=== PATIENT | female | born 1965 | race Caucasian/White ===

== ENCOUNTER → 2019-06-03 10:45 | Outpatient (BNVA) | payer BC, SELFPAY | PROVIDERS: Family Provider Family Medicine; PCP Family Medicine; Visit Provider Nurse Practitioner | DX: M54.16 Radiculopathy, lumbar region (principal); M47.817 Spondylosis without myelopathy or radiculopathy, lumbosacral region; M51.36 Other intervertebral disc degeneration, lumbar region; M48.061 Spinal stenosis, lumbar region without neurogenic claudication; M25.561 Pain in right knee; F17.210 Nicotine dependence, cigarettes, uncomplicated; Z79.891 Long term (current) use of opiate analgesic | CPT/HCPCS: 99214 ==

== ENCOUNTER → 2019-06-25 11:55 | Outpatient (BNVA) | payer BC, SELFPAY | PROVIDERS: Family Provider Family Medicine; PCP Family Medicine; Visit Provider Nurse Practitioner Family | DX: E55.9 Vitamin D deficiency, unspecified (principal); R53.83 Other fatigue; I10 Essential (primary) hypertension; E78.5 Hyperlipidemia, unspecified; R73.09 Other abnormal glucose; J44.9 Chronic obstructive pulmonary disease, unspecified; K21.9 Gastro-esophageal reflux disease without esophagitis; F17.210 Nicotine dependence, cigarettes, uncomplicated | CPT/HCPCS: 36415; 80053; 80061; 81001; 82306; 83036; 84439; 84443; 84481; 85025 ==

== ENCOUNTER → 2019-06-29 15:07 | Outpatient (BNVA) | payer BC, SELFPAY | PROVIDERS: Family Provider Family Medicine; PCP Family Medicine; Visit Provider Nurse Practitioner Family | DX: K59.09 Other constipation (principal) | CPT/HCPCS: 74018 ==

== ENCOUNTER 2019-08-13 06:14 | Day surgery (SDC) | payer BC, SELFPAY ==
[2019-08-11 08:10] VITALS: BMI 37.8
[2019-08-11 10:21] VITALS: BMI 37.8
[2019-08-13 06:32] VITALS: BP 182/111; PULSE 90; RESP 20; O2SAT 96
[2019-08-13 06:34] VITALS: TEMP 37
[2019-08-13] MEDS: sodium chloride 0.9% 1,000 ML 30 ML (06:42)
--- NOTE | 2019-08-13 06:45 | W.PM.OPSUD ---
Surgery/Procedure H&P Update DATE OF PROCEDURE: August 13, 2019 DATE H&P PERFORMED: 07/30/19 H&P UPDATE INFORMATION: I have reviewed H&P completed within last 30 days, I have examined patient prior to procedure and No changes to prior documentation PREOP DIAGNOSIS: Constipation PRIMARY INDICATION FOR PROCEDURE: The same PLANNED PROCEDURE: Operation Date: 08/13/19 07:15 Proposed Procedures p Colonoscopy 68714 K62.5(Not Applicable) - Renny Marcano MD
--- NOTE | 2019-08-13 06:50 | ANES.PREANE2 ---
Pre-Anesthetic Assessment Pre-Anesthetic Assessment: Height/Weight: Height 1.68 m Weight 99.79 kg Temp Pulse Resp BP Pulse Ox 98.6 F 90 20 H 182/111 96 08/13/19 06:34 08/13/19 06:32 08/13/19 06:32 08/13/19 06:32 08/13/19 06:32 Preop Diagnosis: Constipation Proposed Procedure: Operation Date: 08/13/19 07:15 Proposed Procedures p Colonoscopy 98242 K62.5(Not Applicable) - Renny Marcano MD Was Beta Jairo taken within 24 hours: N/A Last intake: Intake Last Liquid Date 08/13/19 Last Liquid Time 06:00 Social: Social History: Tobacco (1.5pk day) Exam: Pre-Anes Outpt Exam: alert and oriented x 3 Airway: Submandibular: WNL Cervical ROM: WNL MP: 2 Dentition: False (upper n lower) History/ROS: No significant history except as noted and No significant complaints Pulmonary: Pulmonary: COPD and Sleep apnea (cpap) CV/HEM: CV/HEM: HTN and Murmur (MVP) : : None reported Hepatic: Hepatic: None reported GI: GI: GERD Metabolic: Metabolic: None reported Musc/skel: Musc/skel: Lower Back Pain, OA/DJD and Scoliosis Comments: Hydrocodone use 5-7 yr Neuropsych: Neuropsych: PASCUAL Anesthetic Plan: ASA status: 3 Anesthesia: MAC PFSH Anesthesia PFSH: Social History Smoking and tobacco status: current every day smoker cigarettes [ Other cigarette details: 1- 1.5 PKS PER DAY BAD DAY 2-3 PKS DAY ] Second hand smoke exposure: No Alcohol intake: never Data Anesthesia Cardiac Studies: No Data to Display
[2019-08-13 07:27] VITALS: BP 131/73; PULSE 65; RESP 16; TEMP 36.5; O2SAT 99
[2019-08-13 07:42] VITALS: BP 129/82; PULSE 68; RESP 18; TEMP 36.6
--- NOTE | 2019-08-13 07:44 | ANE.PACU2 ---
 Inpatient post-anesthesia follow up: Airway intact: Yes Vital signs: Temperature 97.7 F Pulse Rate 65 Respiratory Rate 16 Blood Pressure 131/73 Pulse Oximetry 99 Oxygen Delivery Me thod Nasal Cannula Oxygen Flow Rate 3 Fraction of Inspir ed Oxygen Hydration adequate: Yes Nausea and vomiting: No Mental status: Baseline
== END 2019-08-13 07:55 | disposition home or self-care (01) ==
PROVIDERS: Family Provider Family Medicine; PCP Nurse Practitioner Family; Visit Provider Surgery
PROC: 0DJD8ZZ Inspection of Lower Intestinal Tract, Via Natural or Artificial Opening Endoscopic (ICD-10-PCS; CPT 45378; principal; 2019-08-13 07:15)
DX: K59.00 Constipation, unspecified (principal); D12.5 Benign neoplasm of sigmoid colon; F17.210 Nicotine dependence, cigarettes, uncomplicated; J44.9 Chronic obstructive pulmonary disease, unspecified; G47.30 Sleep apnea, unspecified; M19.90 Unspecified osteoarthritis, unspecified site
CPT/HCPCS: 12345; 45385; 88305; J2001; J2704; J3010; J7030

== ENCOUNTER → 2019-08-18 08:32 | Outpatient (BNVA) | payer BC, SELFPAY | PROVIDERS: Family Provider Family Medicine; PCP Nurse Practitioner Family; Visit Provider Nurse Practitioner | DX: M54.5 Low back pain (principal); F17.210 Nicotine dependence, cigarettes, uncomplicated; Z79.891 Long term (current) use of opiate analgesic | CPT/HCPCS: 99214 ==

== ENCOUNTER → 2019-12-18 09:52 | Outpatient (BNVA) | payer BC, SELFPAY | PROVIDERS: Family Provider Family Medicine; PCP Nurse Practitioner Family; Visit Provider Anesthesiology | DX: M54.42 Lumbago with sciatica, left side (principal); M54.41 Lumbago with sciatica, right side; M48.061 Spinal stenosis, lumbar region without neurogenic claudication; M54.16 Radiculopathy, lumbar region; M51.36 Other intervertebral disc degeneration, lumbar region; M47.817 Spondylosis without myelopathy or radiculopathy, lumbosacral region; F17.210 Nicotine dependence, cigarettes, uncomplicated; Z79.891 Long term (current) use of opiate analgesic | CPT/HCPCS: 99213; 99214 ==

== ENCOUNTER → 2020-01-11 09:54 | Outpatient (BNVA) | payer BC, SELFPAY | PROVIDERS: Family Provider Family Medicine; PCP Nurse Practitioner Family; Visit Provider Nurse Practitioner Family | DX: E11.9 Type 2 diabetes mellitus without complications (principal); J30.89 Other allergic rhinitis; E55.9 Vitamin D deficiency, unspecified; E78.2 Mixed hyperlipidemia; H61.21 Impacted cerumen, right ear; G47.30 Sleep apnea, unspecified; I10 Essential (primary) hypertension | CPT/HCPCS: 80053; 80061; 81003; 82306; 83036; 84443; 85007; 85027 ==

== ENCOUNTER → 2020-02-19 09:15 | Outpatient (BNVA) | payer BC, SELFPAY | PROVIDERS: Family Provider Family Medicine; PCP Nurse Practitioner Family; Visit Provider Anesthesiology | DX: M48.061 Spinal stenosis, lumbar region without neurogenic claudication (principal); M54.16 Radiculopathy, lumbar region; M51.36 Other intervertebral disc degeneration, lumbar region; M47.817 Spondylosis without myelopathy or radiculopathy, lumbosacral region; F17.210 Nicotine dependence, cigarettes, uncomplicated; Z79.891 Long term (current) use of opiate analgesic | CPT/HCPCS: 99213; 99214 ==

== ENCOUNTER → 2020-04-13 10:31 | Outpatient (BNVA) | payer BC, SELFPAY | PROVIDERS: Family Provider Family Medicine; PCP Nurse Practitioner Family; Visit Provider Anesthesiology | DX: M48.061 Spinal stenosis, lumbar region without neurogenic claudication (principal); M54.16 Radiculopathy, lumbar region; M51.36 Other intervertebral disc degeneration, lumbar region; M47.817 Spondylosis without myelopathy or radiculopathy, lumbosacral region; F17.210 Nicotine dependence, cigarettes, uncomplicated; Z79.891 Long term (current) use of opiate analgesic | CPT/HCPCS: 99213; 99214 ==

== ENCOUNTER → 2020-06-09 08:25 | Outpatient (BNVA) | payer OTHER, SELFPAY | PROVIDERS: Family Provider Family Medicine; PCP Nurse Practitioner Family; Visit Provider Anesthesiology | DX: M48.061 Spinal stenosis, lumbar region without neurogenic claudication (principal); M54.16 Radiculopathy, lumbar region; M51.36 Other intervertebral disc degeneration, lumbar region; M47.817 Spondylosis without myelopathy or radiculopathy, lumbosacral region; F17.210 Nicotine dependence, cigarettes, uncomplicated; Z79.891 Long term (current) use of opiate analgesic; Z79.899 Other long term (current) drug therapy | CPT/HCPCS: 99213; 99214 ==

== ENCOUNTER → 2020-08-11 08:02 | Outpatient (BNVA) | payer OTHER, SELFPAY | PROVIDERS: Family Provider Family Medicine; PCP Nurse Practitioner Family; Visit Provider Anesthesiology | DX: M51.36 Other intervertebral disc degeneration, lumbar region (principal); M47.817 Spondylosis without myelopathy or radiculopathy, lumbosacral region; M54.16 Radiculopathy, lumbar region; F17.210 Nicotine dependence, cigarettes, uncomplicated; Z79.891 Long term (current) use of opiate analgesic; Z79.899 Other long term (current) drug therapy | CPT/HCPCS: 99213 ==

== ENCOUNTER → 2020-10-26 10:24 | Outpatient (BNVA) | payer OTHER, SELFPAY | PROVIDERS: Family Provider Family Medicine; PCP Nurse Practitioner Family; Visit Provider Nurse Practitioner | DX: M54.16 Radiculopathy, lumbar region (principal); M48.061 Spinal stenosis, lumbar region without neurogenic claudication; F17.210 Nicotine dependence, cigarettes, uncomplicated; Z79.891 Long term (current) use of opiate analgesic; Z79.899 Other long term (current) drug therapy; Z71.6 Tobacco abuse counseling | CPT/HCPCS: 99214 ==

== ENCOUNTER → 2020-11-29 10:36 | Outpatient (BNVA) | payer OTHER, SELFPAY | PROVIDERS: Family Provider Family Medicine; PCP Nurse Practitioner Family; Visit Provider Nurse Practitioner Family | DX: J22 Unspecified acute lower respiratory infection (principal); J44.9 Chronic obstructive pulmonary disease, unspecified; J30.89 Other allergic rhinitis; I10 Essential (primary) hypertension; K59.04 Chronic idiopathic constipation; E11.9 Type 2 diabetes mellitus without complications; E55.9 Vitamin D deficiency, unspecified; E78.2 Mixed hyperlipidemia | CPT/HCPCS: 71046 ==

== ENCOUNTER → 2020-12-14 08:57 | Outpatient (BNVA) | payer OTHER, SELFPAY | PROVIDERS: Family Provider Family Medicine; PCP Nurse Practitioner Family; Visit Provider Nurse Practitioner Family | DX: E11.9 Type 2 diabetes mellitus without complications (principal); I10 Essential (primary) hypertension; E55.9 Vitamin D deficiency, unspecified; J44.9 Chronic obstructive pulmonary disease, unspecified; E78.2 Mixed hyperlipidemia | CPT/HCPCS: 80053; 80061; 81003; 82306; 83036; 83735; 84443; 85025 ==

== ENCOUNTER → 2020-12-21 09:25 | Outpatient (BNVA) | payer OTHER, SELFPAY | PROVIDERS: Family Provider Family Medicine; PCP Nurse Practitioner Family; Visit Provider Nurse Practitioner | DX: M47.817 Spondylosis without myelopathy or radiculopathy, lumbosacral region (principal); M51.36 Other intervertebral disc degeneration, lumbar region; M54.16 Radiculopathy, lumbar region; M48.061 Spinal stenosis, lumbar region without neurogenic claudication; F17.200 Nicotine dependence, unspecified, uncomplicated; Z79.891 Long term (current) use of opiate analgesic; Z71.6 Tobacco abuse counseling | CPT/HCPCS: 99213 ==

== ENCOUNTER → 2021-02-22 09:09 | Outpatient (BNVA) | payer OTHER, SELFPAY | PROVIDERS: Family Provider Family Medicine; PCP Nurse Practitioner Family; Visit Provider Nurse Practitioner | DX: M51.36 Other intervertebral disc degeneration, lumbar region (principal); M54.16 Radiculopathy, lumbar region; M48.061 Spinal stenosis, lumbar region without neurogenic claudication; F17.210 Nicotine dependence, cigarettes, uncomplicated; Z79.891 Long term (current) use of opiate analgesic; Z71.6 Tobacco abuse counseling | CPT/HCPCS: 99214 ==

== ENCOUNTER → 2021-04-19 08:27 | Outpatient (BNVA) | payer OTHER, SELFPAY | PROVIDERS: Family Provider Family Medicine; PCP Nurse Practitioner Family; Visit Provider Anesthesiology | DX: M48.061 Spinal stenosis, lumbar region without neurogenic claudication (principal); M54.16 Radiculopathy, lumbar region; M51.36 Other intervertebral disc degeneration, lumbar region; M47.817 Spondylosis without myelopathy or radiculopathy, lumbosacral region; F17.200 Nicotine dependence, unspecified, uncomplicated; Z79.891 Long term (current) use of opiate analgesic; Z79.899 Other long term (current) drug therapy; Z71.6 Tobacco abuse counseling | CPT/HCPCS: 99214 ==

== ENCOUNTER 2021-05-23 08:05 | Outpatient (CLI) | payer OTHER, SELFPAY ==
--- NOTE | 2021-05-23 08:45 | US_ITS ---
WS: [id number] ULTRASOUND ABDOMEN LIMITED CLINICAL INFORMATION: R10.9 - Unspecified abdominal pain COMPARISON: None. FINDINGS: Liver Size: Enlarged Craniocaudal length: 19.3 cm. Echogenicity: Coarse Surface nodularity: None. Mass (size and location): None. Bile ducts Intrahepatic ducts: Normal. Common bile duct diameter: 0.6 cm. Gallbladder Normal. Gallstones: None. Gallbladder sludge: None. Gallbladder wall thickening: None. Pericholecystic fluid: None. Sonographic Carvalho sign: Absent. Pancreas Normal as visualized. Right kidney: Normal. Hydronephrosis: None. Size: 12.5 cm x 5.4 cm x 5.4 cm. Abdominal aorta and IVC Visualized portions are normal. Ascites: None. US/US gall bladder [id number] IMPRESSION: 1. Hepatomegaly with coarse hepatic echotexture. Recommend correlation with li mak function tests. No intrahepatic biliary ductal dilatation. 2. Normal gallbladder. 3. Normal common bile duct. 4. No hydronephrosis in right kidney.
== END 2021-05-23 08:06 | disposition home or self-care (01) ==
PROVIDERS: PCP Nurse Practitioner Family; Visit Provider Nurse Practitioner Family
DX: R10.11 Right upper quadrant pain (principal)
CPT/HCPCS: 76705

== ENCOUNTER → 2021-06-12 10:38 | Outpatient (BNVA) | payer OTHER, SELFPAY | PROVIDERS: PCP Nurse Practitioner Family; Visit Provider Nurse Practitioner Family | DX: Z20.5 Contact with and (suspected) exposure to viral hepatitis (principal); R10.11 Right upper quadrant pain | CPT/HCPCS: 36415; 80053; 80074; 87522 ==

== ENCOUNTER 2021-07-25 07:12 | Outpatient (CLI) | payer OTHER, SELFPAY ==
--- NOTE | 2021-07-25 07:33 | NM_ITS ---
WS: [id number] NUCLEAR MEDICINE HIDA SCAN CLINICAL INFORMATION: R10.11 - Right upper quadrant pain TECHNIQUE: Following intravenous administration of 8.1 mCi of technetium 99m mebrofenin, images of th e abdomen were obtained over the course of 60 minutes. Next, gallbladder ejection fraction was determ ined by obtaining preprandial and one-hour postprandial images of the gallbladder following oral miguel angel stion of Ensure. COMPARISON: Ultrasound May 23, 2021 FINDINGS: Normal hepatic uptake at 5 minutes. Hepatomegaly. Gallbladder is visualized by 10 minutes. No evidenc e of acute cholecystitis. Normal small bowel and colon bile duct activity. Gallbladder ejection fraction 87% within normal limits. No evidence of chronic cholecystitis. NM/NM hepatobiliary w phar* [id number] IMPRESSION: 1. No evidence of acute or chronic cholecystitis. 2. Gallbladder ejection fraction 87% within normal limits.
== END 2021-07-25 07:13 | disposition home or self-care (01) ==
LOC: RAD 07:13
PROVIDERS: PCP Nurse Practitioner Family; Visit Provider Surgery
DX: R10.11 Right upper quadrant pain (principal)
CPT/HCPCS: 78227; A9537

== ENCOUNTER 2021-08-16 11:03 | Outpatient (CLI) | payer OTHER, SELFPAY ==
--- NOTE | 2021-08-16 11:33 | XRR_ITS ---
PROCEDURE INFORMATION: Exam: XR Lumbosacral Spine Exam date and time: 08/16/2021 11:35 AM Age: 56 years old Clinical indication: Low back pain; Additional info: Vertebrogenic low back pain TECHNIQUE: Imaging protocol: XR of the lumbosacral spine. Views: 2 or 3 views. COMPARISON: CR XR KUB [id number] 06/29/2019 3:18 PM FINDINGS: Bones/joints: Normal. No acute fracture. Normal alignment. Soft tissues: Unremarkable. XR/XR lumbar spine f/e only [id number] IMPRESSION: No significant abnormality.
== END 2021-08-16 11:04 | disposition home or self-care (01) ==
LOC: RAD 11:07
PROVIDERS: PCP Nurse Practitioner Family; Visit Provider Nurse Practitioner Family
DX: M54.51 Vertebrogenic low back pain (principal)
CPT/HCPCS: 72120

== ENCOUNTER 2022-01-15 13:48 | Outpatient (CLI) | payer OTHER, MEDICAID, SELFPAY ==
--- NOTE | 2022-01-15 13:54 | MR_ITS ---
WS: [id number] MRI LUMBAR SPINE NONCONTRAST HISTORY: VERTEBROGENIC LOW BACK PAIN, pain down RIGHT leg. COMPARISON: Radiographs 08/16/2021 TECHNIQUE: Sagittal and axial multisequence imaging is submitted. Mild increase in thoracic kyphosis. Schmorl's nodes defects involving T10 and T11. Normal lumbar alignment with no compression fractures or marrow edema. Disc spaces and vertebral body heights are well-preserved. Conus terminates normally at L1-2 disc level. L1-L2: Normal. L2-L3: Normal. L3-L4: Normal. L4-L5: Mild disc bulging with a central fissure. Ligamentum flavum hypertrophy and mild facet arthrit is. There is mild encroachment and narrowing of the central canal. Mild encroachment into the subarti cular recesses. No high-grade stenosis. L5-S1: Mild disc bulging with a small central disc protrusion which does not appear to contact the ne rve roots. Very minimal disc osteophyte encroachment into the RIGHT subarticular recess and foramen. Best seen on the sagittal images. This may be contacting the RIGHT S1 nerve root minimally. There is very mild encroachment into the subarticular recesses bilaterally, LEFT greater than RIGHT. Paravertebral soft tissues are normal. MR/MR lumbar spine wo con* [id number] IMPRESSION: 1. No high-grade central or foraminal stenosis. 2. Very small central disc protrusion and RIGHT subarticular and proximal fora joanna disc protrusion at L5-S1. There may be very minimal contact on the RIGHT S1 nerve root. 3. Mild central stenosis at L4-5 with mild subarticular recess stenosis.
== END 2022-01-15 13:49 | disposition home or self-care (01) ==
PROVIDERS: PCP Nurse Practitioner; Visit Provider Anesthesiology Pain Medicine
DX: M40.294 Other kyphosis, thoracic region (principal); M51.44 Schmorl's nodes, thoracic region; M48.061 Spinal stenosis, lumbar region without neurogenic claudication; M51.27 Other intervertebral disc displacement, lumbosacral region
CPT/HCPCS: 72148

== ENCOUNTER 2022-06-18 20:00 | Outpatient (CLI) | payer OTHER, BC, SELFPAY | END 2022-06-18 20:01 | disposition home or self-care (01) | LOC: SLEEP 06-21 10:44 | PROVIDERS: PCP Nurse Practitioner; Visit Provider Anesthesiology Pain Medicine | DX: G47.33 Obstructive sleep apnea (adult) (pediatric) (principal) | CPT/HCPCS: 95811 ==

== ENCOUNTER → 2023-06-05 14:06 | Outpatient (BNVA) | payer OTHER, BC, MEDICAID, SELFPAY | PROVIDERS: PCP Nurse Practitioner; Visit Provider Nurse Practitioner Family | DX: I10 Essential (primary) hypertension (principal); E78.2 Mixed hyperlipidemia; E11.9 Type 2 diabetes mellitus without complications; E55.9 Vitamin D deficiency, unspecified; J44.9 Chronic obstructive pulmonary disease, unspecified | CPT/HCPCS: 80053; 80061; 81003; 82306; 83036; 84443; 85025; 87077; 87086; 87184 ==

== ENCOUNTER → 2023-08-27 10:37 | Outpatient (BNVA) | payer OTHER, BC, MEDICAID, SELFPAY | PROVIDERS: PCP Nurse Practitioner Family; Visit Provider Nurse Practitioner Family | DX: Z13.6 Encounter for screening for cardiovascular disorders (principal); E11.9 Type 2 diabetes mellitus without complications; E78.2 Mixed hyperlipidemia | CPT/HCPCS: 80053; 80061; 81003; 83036; 84443; 85025 ==

== ENCOUNTER → 2023-09-26 11:41 | Outpatient (BNVA) | payer OTHER, BC, MEDICAID, SELFPAY | PROVIDERS: PCP Nurse Practitioner Family; Visit Provider Nurse Practitioner Family | DX: E78.2 Mixed hyperlipidemia (principal); E11.9 Type 2 diabetes mellitus without complications; I10 Essential (primary) hypertension | CPT/HCPCS: 80053; 80061; 81003; 83036; 84443; 85025 ==

== ENCOUNTER 2024-01-14 13:32 | Outpatient (CLI) | payer OTHER, SELFPAY ==
--- NOTE | 2024-01-14 13:59 | XRR_ITS ---
PROCEDURE INFORMATION: Exam: XR Left Elbow Exam date and time: 01/14/2024 2:15 PM Age: 58 years old Clinical indication: Pain; Elbow; Left; Additional info: Cubital tunnel TECHNIQUE: Imaging protocol: Radiologic exam of the left elbow. Views: 3 or more views. COMPARISON: CR XR hand LT min 3V* [id number] 01/14/2024 2:15 PM FINDINGS: Bones/joints: No acute fracture or malalignment. No worrisome lytic or blastic osseous lesion. No appreciable cortical erosion or periosteal reaction. Joint spaces are preserved. No joint effusion. No soft tissue abnormality. Soft tissues: See Bones/joints finding. XR/XR elbow LT min 3V* [id number] IMPRESSION: No acute fracture or malaligment.
--- NOTE | 2024-01-14 13:59 | XRR_ITS ---
PROCEDURE INFORMATION: Exam: XR Left Hand Exam date and time: 01/14/2024 2:15 PM Age: 58 years old Clinical indication: Pain; Hand; Left; Additional info: Carpal tunnel TECHNIQUE: Imaging protocol: Radiologic exam of the left hand. Views: 3 or more views. COMPARISON: CR XR elbow LT min 3V* [id number] 01/14/2024 2:15 PM FINDINGS: Bones/joints: No acute fracture. Mild flexion of the 5th PIP joint may be positional versus due to ligamentous abnormality. Otherwise, no acute malalignment. Mild scattered osteoarthritis. Soft tissues: Normal. XR/XR hand LT min 3V* [id number] IMPRESSION: 1. No acute fracture. Mild flexion of the 5th PIP joint may be positional versus due to ligamentous abnormality. 2. Limited evaluation of soft tissues on this modality. No acute abnormality.
== END 2024-01-14 13:33 | disposition home or self-care (01) ==
PROVIDERS: PCP Nurse Practitioner Family; Visit Provider Student in an Organized Health Care Education/Training Program
DX: G56.22 Lesion of ulnar nerve, left upper limb (principal); M79.642 Pain in left hand; M25.522 Pain in left elbow
CPT/HCPCS: 73080; 73130

== ENCOUNTER → 2024-01-17 08:42 | Outpatient (BNVA) | payer OTHER, SELFPAY | PROVIDERS: PCP Nurse Practitioner Family; Visit Provider Nurse Practitioner Family | DX: Z13.6 Encounter for screening for cardiovascular disorders (principal); E11.9 Type 2 diabetes mellitus without complications; E78.2 Mixed hyperlipidemia; E55.9 Vitamin D deficiency, unspecified | CPT/HCPCS: 80053; 80061; 82306; 83036; 85025 ==

== ENCOUNTER 2024-04-30 08:29 | Day surgery (SDC) | payer OTHER, SELFPAY ==
[2024-04-30] VITALS (9 sets, daily range): BP systolic 138–164; BP diastolic 82–104; PULSE 69–74; RESP 18; TEMP 36.3–36.6; O2SAT 93–99; BMI 33.5
[2024-04-30] MEDS: sodium chloride 0.9% 1,000 ML 30 ML IV (09:11)
[2024-04-30] MEDS: acetaminophen 1,000 MG/100 ML PIGGYBACK 400 MG IV (09:11)
--- NOTE | 2024-04-30 09:11 | W.PM.OPSFHP ---
Same Day Surgery H&P Indication for Procedure/HPI DATE OF PROCEDURE: April 30, 2024 CHIEF COMPLAINT/INDICATIONFOR SURGICAL PROCEDURE: Left carpal tunnel syndrome, left cubital tunnel syndrome PREOP DIAGNOSIS: Left carpal tunnel syndrome, left cubital tunnel syndrome PLANNED PROCEDURE: Operation Date: 04/30/24 10:10 Proposed Procedures p Carpal Tunnel Release(Left) - Monty Lai DO s Cubital Tunnel Release(Left) - Monty Lai DO s Ulnar Nerve Transposition(Left) - Monty Lai DO Medications/Allergies* Home Medications Medication Instructions Recorded Confirmed Type albuterol sulfate 90 mcg/actuation 90 mcg inhalation QID 04/29/24 04/29/24 History aerosol inhaler empagliflozin 10 mg tablet 10 mg PO DAILY 04/29/24 04/29/24 History (Jardiance) fluticasone 250 mcg-salmeterol 50 250 ea inhalation BID 04/29/24 04/29/24 History mcg/dose blistr powdr for inhalation (Wixela Inhub) Allergies/Adverse Reactions Allergy/AdvReac Type Severity Reaction Status Date / Time latex Allergy rash Verified 04/30/24 08:45 Pertinent History/Comorbid Conditions* Medical History (Updated 04/09/24 @ 16:03 by Monty Lai DO) Ear infection Ulnar nerve compression Urinary tract infection Sinusitis Exposure to hepatitis C Cigarette smoker motivated to quit Right upper quadrant abdominal pain Lower respiratory infection COPD exacerbation Chronic idiopathic constipation Lower respiratory infection Sleep apnea Impacted cerumen of right ear H/O adenomatous polyp of colon Encounter for long-term opiate analgesic use Constipation Mixed hyperlipidemia Patient reports history of elevated lipids. She is currently not taking any Statin medications. Vitamin D deficiency GERD (gastroesophageal reflux disease) Patient has history of GERD with use of antiacids Diabetes mellitus, type II Mitral valve prolapse COPD (chronic obstructive pulmonary disease) Patient has history of COPD and uses daily inhalers. Environmental and seasonal allergies Essential hypertension, benign Patient has history of elevated blood pressure but has not taken meds in some time. Abdominal hernia Surgical complication involving right ear DDD (degenerative disc disease), lumbar Long-term use of high-risk medication (~08/18/19) Lumbar spine pain Lumbar radiculitis Spondylosis without myelopathy or radiculopathy, lumbosacral region Spinal stenosis, lumbar Tobacco use disorder Patient has smoked cigarettes for several years and is currently not interested in smoking cessation. Surgical History (Updated 01/01/20 @ 10:29 by SOPHIE Daly) History of colonoscopy (~07/2019) Polypectomy 2019 - return in 3 years S/P bilateral breast reduction S/P total hysterectomy S/P ear surgery RIGHT EAR Family History (Updated 07/30/19 @ 10:51 by Hillary Hayden RN) Cancer Family/Other colon cancer Denies family history of Anesthesia complication Bleeding disorder Social History Smoking and tobacco/nicotine status: current every day tobacco/nicotine user (cigarettes) cigarettes Packs smoked per day: 1 Second hand smoke exposure: No Alcohol intake: never Substance/Drug Use: never Pertinent Exam Findings alert, oriented x 3, operative site marked and procedure specific exam findings Please refer to detailed orthopedic examination on 03/23/2024 listed below: Left Hand exam-positive Tinel's and median nerve compression test at the wrist. No significant thenar atroph, full range of motion in fingers and wrist and fingers are warm and well-perfused with normal cap refill under 2 seconds. Radial pulse 2+, significant intrinsic muscle weakness and atrophy noted. Elbow exam-positive Tinel's test Recommendations Surgery/Procedure today Other Plans: Plan to proceed to the OR today for left carpal tunnel release, left cubital tunnel release with possible ulnar nerve transposition. Patient understands the ins and outs of procedure the risk benefits complication alternatives with surgery and through shared decision making lacks proceed with surgical intervention. All questions answered at this time. Once again she does have intrinsic wasting as well as visible ulnar clawing today we did reiterate the severity of her disease and that this may not achieve a full recovery but ultimately this point time would recommend for goals of hopefully trying to achieve protective sensation. She through shared decision make elects proceed with surgical intervention all questions answered. Coding Level of Care Code Acute Code for Chg Fwroman
[2024-04-30] MEDS: ketorolac 30 mg/mL INJ IVP (09:12)
[2024-04-30] MEDS: scopolamine 1.5 Patch 1 PATCH TRANSDERMA (09:14)
[2024-04-30 09:30] LABS: Glucose Point of Care 115 mg/dL (70-110)
--- NOTE | 2024-04-30 09:59 | ANES.PREANE2 ---
Pre-Anesthetic Assessment Height/Weight: Height 5 ft 4 in Temp Pulse Resp BP Pulse Ox O2 Del Method 98 F 74 18 152/90 96 Room Air 04/30/24 08:51 04/30/24 08:51 04/30/24 08:51 04/30/24 08:51 04/30/24 08:51 04/30/24 09:24 Preop Diagnosis: Left carpal tunnel syndrome, left cubital tunnel syndrome Operation Date: 04/30/24 10:10 Proposed Procedures p Carpal Tunnel Release(Left) - Monty Pinellas, DO s Cubital Tunnel Release(Left) - Monty Pinellas, DO s Ulnar Nerve Transposition(Left) - Monty Ming, DO Was Beta Jairo taken within 24 hours: N/A Was Clonidine taken within 24 hours: N/A Last intake: Intake Last Liquid Date 04/29/24 Last Liquid Time 22:00 Last Solid Date 04/29/24 Last Solid Time 20:00 Social Tobacco and No alcohol Exam alert, oriented x 3, clear to auscultation bilaterally and regular rate & rhythm Airway Submandibular: within normal limits Cervical ROM: within normal limits Mallampati: Class II Dentition: false Anesthetic Plan ASA status: 3 Anesthesia: General and Regional (specify below) Other: No prior issues with anesthesia NPO since yesterday COPD, current smoker. No oxygen History of hypertension on lisinopril GERD on Protonix Type 2 diabetes, no insulin. BS 115 Chronic tramadol and hydrocodone due to back pain Plan for general anesthesia with preop nerve block Medications/Allergies Home Medications Medication Instructions Recorded Confirmed Last Taken Type hydrocodone 10 mg-acetaminophen 1 tab PO QID PRN pain 30 days #120 06/16/21 04/29/24 04/29/24 Rx 325 mg tablet tabs fluticasone propionate 50 See Rx Instructions .Route 05/15/22 04/29/24 04/29/24 Rx mcg/actuation nasal .COMPLEX #16 grams spray,suspension nebulizer #1 ea 06/19/22 03/24/24 Unknown Rx albuterol sulfate 0.63 mg/3 mL 0.63 mg (3 mL) inhalation Q6H PRN 12/10/22 04/29/24 Unknown Rx solution for nebulization shortness of breath or wheezing 90 days #1,080 mL linaclotide 145 mcg capsule 145 mcg PO DAILY #30 caps 12/10/22 04/29/24 04/29/24 Rx (Linzess) nebulizer #1 ea 12/10/22 03/24/24 Unknown Rx blood-glucose meter #1 ea 10/01/23 03/24/24 Unknown Rx pantoprazole 40 mg tablet,delayed 40 mg PO DAILY #90 tabs 11/26/23 04/29/24 04/29/24 Rx release (Protonix) blood sugar diagnostic #100 ea 12/12/23 03/24/24 Unknown Rx loratadine 10 mg tablet (Claritin) 10 mg PO DAILY 90 days #90 tabs 12/24/23 04/29/24 04/29/24 Rx metformin 1,000 mg tablet See Rx Instructions .Route 12/24/23 04/29/24 04/29/24 Rx .COMPLEX #30 tabs ofloxacin 0.3 % ear drops 10 drp otic (ear) DAILY 7 days #10 01/17/24 04/29/24 Unknown Rx mL omega-3 acid ethyl esters 1 gram 1 cap PO BID 30 days #60 caps 01/17/24 04/29/24 04/29/24 Rx capsule lisinopril 20 mg tablet See Rx Instructions .Route 02/11/24 04/29/24 04/29/24 Rx .COMPLEX #90 tabs albuterol sulfate 90 mcg/actuation 90 mcg inhalation QID 04/29/24 04/29/24 04/29/24 History aerosol inhaler empagliflozin 10 mg tablet 10 mg PO DAILY 04/29/24 04/29/24 04/29/24 History (Jardiance) fluticasone 250 mcg-salmeterol 50 250 ea inhalation BID 04/29/24 04/29/24 04/29/24 History mcg/dose blistr powdr for inhalation (Wixela Inhub) tramadol 50 mg tablet 50 mg PO Q6H PRN pain 7 days #28 04/30/24 Unknown Rx tabs Allergies Allergy/AdvReac Type Severity Reaction Status Date / Time latex Allergy rash Verified 04/30/24 08:45 Current Medications Generic Name Dose Route Start Last Admin Trade Name Freq PRN Reason Stop Dose Admin Sodium Chloride 1,000 mls @ 30 mls/hr 04/30/24 08:45 04/30/24 09:11 Sodium Chloride 0.9% IV 05/01/24 08:44 30 mls/hr .Q24H FARHAD Administration PFSH Anesthesia Medical History Ear infection Ulnar nerve compression Urinary tract infection Sinusitis Exposure to hepatitis C Cigarette smoker motivated to quit Right upper quadrant abdominal pain Lower respiratory infection COPD exacerbation Chronic idiopathic constipation Lower respiratory infection Sleep apnea Impacted cerumen of right ear H/O adenomatous polyp of colon Encounter for long-term opiate analgesic use Constipation Mixed hyperlipidemia Patient reports history of elevated lipids. She is currently not taking any Statin medications. Vitamin D deficiency GERD (gastroesophageal reflux disease) Patient has history of GERD with use of antiacids Diabetes mellitus, type II Mitral valve prolapse COPD (chronic obstructive pulmonary disease) Patient has history of COPD and uses daily inhalers. Environmental and seasonal allergies Essential hypertension, benign Patient has history of elevated blood pressure but has not taken meds in some time. Abdominal hernia Surgical complication involving right ear DDD (degenerative disc disease), lumbar Long-term use of high-risk medication (~08/18/19) Lumbar spine pain Lumbar radiculitis Spondylosis without myelopathy or radiculopathy, lumbosacral region Spinal stenosis, lumbar Tobacco use disorder Patient has smoked cigarettes for several years and is currently not interested in smoking cessation. Surgical History History of colonoscopy (~07/2019) Polypectomy 2020 - return in 3 years S/P bilateral breast reduction S/P total hysterectomy S/P ear surgery RIGHT EAR Family History Family/Other Cancer colon cancer Denies family history of Anesthesia complication Bleeding disorder Social History Smoking and tobacco/nicotine status: current every day tobacco/nicotine user (cigarettes) cigarettes Packs smoked per day: 1 Second hand smoke exposure: No Alcohol intake: never Substance/Drug Use: never Data Anesthesia Cardiac Studies: No Data to Display
--- NOTE | 2024-04-30 10:01 | ANES.PROC ---
Anesthesia Procedures Procedure/Date: 04/30/24 Nerve Block ^: Nerve Block 1: Main Anesthesia: other (100 mcg fentanyl and 2 mg Versed) Time Out Performed: Yes Consent: requested by attending/covering physician and from patient Nerve block location: supraclavicular Anesthesia monitors applied: pulse oximetry, EKG, BP cuff and oxygen Nerve block position: supine Anesthetic Used: ropivicaine 0.5% Amount of anesthesia used (mL): 30 Ultrasound used to: recognize landmarks Nerve Stimulator Used?: Yes Interscalene/Femoral BLK: other needle (pjunk 4inch) Injection: neg aspiration of heme Patient Tolerated Procedure: well Complications: none
[2024-04-30] MEDS: ceFAZolin 2,000 MG in sodium chloride 0.9% (plus) 50 ML 100 MG IV (10:20)
--- NOTE | 2024-04-30 11:23 | W.PM.BPON ---
Date of Procedure: 04/30/2024 Surgeon: Monty Lai DO Detective Investigator(s): None Procedure(s) performed: Left carpal tunnel release Left cubital tunnel release Findings of the procedure(s): Patient found to have left carpal tunnel syndrome, left cubital tunnel syndrome underwent procedure as planned without issues or complications Estimated blood loss: 5 mL Specimen(s) removed: None Post-operative diagnosis: Left carpal tunnel syndrome, left cubital tunnel syndrome
--- NOTE | 2024-04-30 11:25 | P.OP_ITS ---
Operative Report Date of procedure: April 30, 2024 Surgeon: Monty Lai DO Procedure: Preop Dx Left carpal tunnel syndrome Left cubital tunnel syndrome Postop Diagnosis: Same Procedure done: left carpal tunnel release left?cubital?tunnel tunnel release (ulnar nerve decompression at elbow) Surgeon: Monty Lai DO Estimated blood loss: 5 mL Tourniquet? 21 minutes IV fluids: 900 mL Complications: None Findings: See operative report narrative Condition: stable Disposition: same day Brief History: Patient's been seen and worked up in the outpatient setting and findings consistent with preoperative diagnosis.? 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 Patient's failed conservative treatment.? As result through shared decision making agreed to proceed with? left carpal tunnel and left?cubital?tunnel release possible ulnar nerve transposition. we talked about treatment options as far as nonoperative and operative intervention.? Understands risk benefits complication alternatives surgical nonsurgical treatment options.? Understanding risks pt agrees to proceed with surgical intervention. All questions answered. Procedure: Patient seen evaluate in the preoperative holding area.? Consent was reviewed and signed with patient.? Correct extremity marked.? Patient seen evaluated by anesthesia department once cleared for surgery was then taken back to the operative suite placed in supine position all bony prominences well-padded patient properly secured to bed.? left upper extremity placed onto armboard.? Nonsterile tourniquet applied left upper arm.? Patient then underwent anesthesia per the anesthesia department.? Patient's left upper extremity was then prepped and draped in standard orthopedic fashion.? Final timeout performed.? Patient received appropriate preoperative antibiotics. Esmarch was used exsanguinate the left upper extremity.? Tourniquet was insufflated to 250 mmHg. I started with the carpal tunnel release first.? I made a standard open carpal tunnel release starting with the distal most extent in the palm at the Mcgraw's cardinal line and the incision line was made in line with the fourth ray and ended just distal to the wrist crease.? Sharp scalpel incision was made through skin and subcutaneous tissue I then utilizing self retainer then began to dissect with dissection scissors split longitudinally the palmar fascia.? Next I then utilizing my licensed physical therapist assistant Samueldaadan retractors subsequently utilizing scalpel feathered through the palmaris brevis as well as through the transverse carpal ligament distally.? Once I encountered the floor of the transverse carpal ligament and entered into the carpal tunnel I then switched to dissection scissors.? Carefully released the distal extent of the transverse carpal ligament to the palmar fat.? Care was to protect the recurrent branch and not injured this during this part of the case.? Next I then placed a [place] underneath the transverse carpal ligament proximally to protect the nerve in the carpal tunnel contents.? And then I subsequently under loupe magnification utilize my dissection scissors to release the transverse carpal ligament into the antebrachial fascia under direct visualization with care to keep my scissors with a curved ulnarly away from the palmar cutaneous branch.? The transverse carpal was then completely decompressed proximally and a [place] was then placed both distally and proximally throughout the carpal tunnel and had complete decompression of the nerve.? The nerve did appear to have hourglass shape as it went through the carpal tunnel.? With significant irritation noted around the nerve.? No masses were noted within the contents of the carpal tunnel.? This completed the carpal tunnel release and then I subsequently irrigated the wound bed and placed a wet Ray-Mar into the incision for later closure. Next marked out the landmarks of the right elbow of the medial epicondyle and olecranon and made a curvilinear incision following the course of the ulnar nerve at the medial aspect of the elbow.? Sharp scalpel incision was made through skin and subcutaneous tissue.? Next I switched to Littler dissection scissors and spread in plane of the medial antebrachial cutaneous nerve branching which was protected throughout this part of the dissection.? Then I directly came down over the fascia and identified the 2 heads of the FCU fascia and split this right in the middle and subsequently identified my ulnar nerve distally.? This was then completely released distally under direct visualization and loupe magnification.? Once the nerve was then identified I then subsequently tracked this proximally and released this through Aguero's ligament as well as complete decompression of the nerve proximally all the way past the intermuscular septum.? The nerve was completely released and decompressed both proximally and distally.? Ulnar nerve neurolysis performed and completed both pr oximally and distally with dissection scissors.?Patient had significant hourglassing and compression of the nerve throughout the cubital tunnel consistent with severe disease. I then took the elbow through range of motion and there was no instability or subluxating of the ulnar nerve.? This completed?cubital?tunnel release.? ?Next the wound bed was thoroughly irrigated.? Tourniquet was deflated.? Hemostasis was satisfactory at the?cubital?tunnel release surgery site. I then inspected the carpal tunnel incision and this was found to have satisfactory hemostasis and all this was maintained through bipolar electrocautery.? At this point time I sequentially closed?cubital?tunnel site with 3-0 Vicryl suture in a running horizontal mattress nylon stitch.? ? The carpal tunnel release surgery was then closed in standard interrupted mattress fashion.? Dressing was Xeroform 4 x 4's ABD Curlex soft roll and an Gio wrap has a bulky soft dressing. Patient was then awakened from anesthesia and taken to PACU in stable condition. Disposition: Patient taken to PACU in stable condition recovering well.? Patient will receive appropriate discharge instructions as well as pain medication postoperatively.? We will follow-up with me in the office in 2 weeks.? Patient understands agrees with current plan.? All questions answered.? Pt understands if any questions or concerns and contact the office for follow-up appointment.
== END 2024-04-30 12:49 | disposition home or self-care (01) ==
PROVIDERS: PCP Nurse Practitioner Family; Visit Provider Student in an Organized Health Care Education/Training Program
PROC: (CPT 64721; principal; 2024-04-30 10:10)
PROC: (CPT 64718; 2024-04-30 10:10)
DX: G56.02 Carpal tunnel syndrome, left upper limb (principal); G56.22 Lesion of ulnar nerve, left upper limb; J44.9 Chronic obstructive pulmonary disease, unspecified; I10 Essential (primary) hypertension; K21.9 Gastro-esophageal reflux disease without esophagitis; E11.9 Type 2 diabetes mellitus without complications; Z79.891 Long term (current) use of opiate analgesic; G89.29 Other chronic pain; M54.9 Dorsalgia, unspecified; F17.210 Nicotine dependence, cigarettes, uncomplicated; G47.30 Sleep apnea, unspecified; E78.2 Mixed hyperlipidemia
CPT/HCPCS: 64718; 64721; 36416; 82962; J0131; J0690; J1100; J1885; J2405; J2704; J3010; J7030

== ENCOUNTER → 2025-02-10 13:55 | Outpatient (BNVA) | payer OTHER, SELFPAY | PROVIDERS: PCP Nurse Practitioner Family; Visit Provider Nurse Practitioner Family | DX: S99.921A Unspecified injury of right foot, initial encounter (principal); S89.91XA Unspecified injury of right lower leg, initial encounter; W19.XXXA Unspecified fall, initial encounter; R93.6 Abnormal findings on diagnostic imaging of limbs | CPT/HCPCS: 73562; 73630 ==

== ENCOUNTER → 2025-04-09 11:45 | Outpatient (BNVA) | payer OTHER, SELFPAY | PROVIDERS: PCP Nurse Practitioner Family; Visit Provider Nurse Practitioner Family | DX: E78.2 Mixed hyperlipidemia (principal); I10 Essential (primary) hypertension; E11.9 Type 2 diabetes mellitus without complications; E55.9 Vitamin D deficiency, unspecified | CPT/HCPCS: 80053; 80061; 81003; 82306; 83036; 84443; 85025; 87086 ==